=== PATIENT | male | born 1945 | race Caucasian/White ===

== ENCOUNTER 2017-09-27 09:10 | Outpatient (CLI) | payer MEDICARE ==
[2017-09-27 10:31] LABS: CALCIUM 8.9 mg/dL (8.5-10.3); CREATININE 0.9 mg/dL (0.6-1.2)
== END 2017-09-27 09:11 | disposition home or self-care (01) ==
LOC: LAB 09:10
PROVIDERS: ATTEND Nurse Practitioner Gerontology
DX: I35.0 Nonrheumatic aortic (valve) stenosis (principal); I25.5 Ischemic cardiomyopathy; I25.10 Atherosclerotic heart disease of native coronary artery without angina pectoris
CPT/HCPCS: 36415; 80048

== ENCOUNTER 2022-11-26 22:08 | Outpatient (CLI) | payer MEDICARE | END 2022-11-26 23:59 | disposition left against medical advice (07) | LOC: EMS 22:08 | DX: R09.02 Hypoxemia (principal) ==

== ENCOUNTER 2022-12-02 02:18 | Outpatient (CLI) | payer MEDICARE | END 2022-12-02 02:19 | disposition E | LOC: EMS 02:18 | DX: I46.9 Cardiac arrest, cause unspecified (principal) | CPT/HCPCS: A0425; A0428 ==